=== PATIENT | male | born 1930 | race Caucasian/White ===

== ENCOUNTER 2018-02-02 20:06 | Emergency (ER) | payer OTHER ==
--- NOTE | 2018-02-02 20:22 | EDPHY ---
HPI/HX/ROS/PE/MDM Narrative: CHIEF COMPLAINT: Fever HPI: This patient is an anticoagulated (Coumadin) 87 year old male with past medical history significant for recurrent rapid sepsis, mitral valve replacement, atrial fibrillation, and bladder cancer. He arrives today via EMS for evaluation of fever and chills. He began feeling unwell around 5:30 this evening , primarily with an "out of body" sensation. His daughter at bedside states he has had similar symptoms annually in the past since his valve replacement. These have been related to cellulitis or other unknown etiology, and the patient generally progresses rapidly into sepsis. On EMS arrival, the patient was noted to be in atrial fibrillation and was hypotensive around 92/62. He had taken 1000mg PO Tylenol for fever relief. Vitals were stable in transport, blood pressure 116/64 on arrival here in the ED. The patient did undergo a treatment on Thursday for his bladder cancer involving injections through the urethra. He denies any local pain, swelling, or erythema to the area. He denies dysuria or any changes in urinary frequency, color, or odor. No abdominal pain, vomiting, or diarrhea. He has a chronic cough and denies any changes in this. No chest pain, shortness of breath, or other associated symptoms. REVIEW OF SYSTEMS: A comprehensive 10 system review of systems is otherwise negative aside from elements mentioned in the history of present illness and medical decision making. PMH: Atrial fibrillation (Coumadin). History of mitral valve replacement 8 years ago following sepsis. Bladder cancer. SOCIAL HISTORY: Daughter at bedside. Lives in [place]. Retired. PHYSICAL EXAM: General:Patient is alert, in no acute distress. ENT:Eyes are normal to inspection. ENT inspection normal. Neck: Normal inspection. Full range of motion. Respiratory:No respiratory distress. Breath sounds normal bilaterally. Cardiovascular: Regular rate and rhythm. Strong peripheral pulses. Normal cap refill. Abdomen:The abdomen is nontender to palpation. There are no peritoneal signs. There are normal bowel sounds. Back: Normal to inspection. No tenderness to palpation. Skin: Normal color. No rash. Warm and dry. Extremities: Normal appearance. Full range of motion. Neuro: Oriented x3. Normal motor function. Normal sensory function. ED Course: 20:08 Met EMS at bedside 87 y/o male with history of recurrent rapid sepsis presents with fevers, chills , and rigors beginning this afternoon. Plan for labs including CBC, chemistries , lactic acid, flu swab, UA, blood cultures. Lactic negative. Flu swab negative. UA negative for UTI. Plan to admit for fever due to prosthetic heart valve, history of rapid progression to sepsis. 22:10 Attempted to contact [facility], no answer. 22:20: Still no answer at [facility]. 22:25 Spoke with [facility] service. They prefer transfer to [facility] , a [facility] facility, for further care. Dr. Smiley Garces accepts admission for fever, history of rapid sepsis. MDM: This patient presents with fever of unknown source and flu-like symptoms. His presentation is reassuring, but he has a history of rapidly going into septic shock as well as a history of strep endocarditis. As such, I think he requires admission for further workup and treatment. His lactate is WNL and vitals are improving, so I do not think empiric antibiotics are indicated at this time. Patient expressed desire to stay here but [facility] has decided to transport him to [facility]. - Data Points Imaging Results: Imaging Impressions Chest X-Ray 02/02/18 20:09 Impression: Nothing acute radiographically. Laboratory Results: Laboratory Results 02/02/18 20:40 02/02/18 20:40 02/02/18 02/02/18 02/02/18 21:10 20:51 20:40 WBC RBC Hgb Hct MCV MCH MCHC RDW Plt Count MPV Neut % (Auto) Lymph % (Auto) [place] % (Auto) Eos % (Auto) Baso % (Auto) Nucleat RBC Rel Count Absolute Neuts (auto) Absolute Lymphs (auto) Absolute Monos (auto) Absolute Eos (auto) Absolute Basos (auto) Absolute Nucleated RBC Immature Gran % Immature Gran # RBC/WBC/PLT Morphology Platelet Estimate PT 30.2 SEC H SEC (12.0-15.0) INR 2.90 H (0.83-1.16) APTT 38.2 SEC H SEC (23.0-38.0) VBG Lactic Acid Sodium 142 mEq/L mEq/L (135-145) Potassium 4.5 mEq/L mEq/L (3.3-5.0) Chloride 109 mEq/L mEq/L (97-110) Carbon Dioxide 21 mEq/l L mEq/l (22-31) Anion Gap 12 mEq/L mEq/L (6-14) BUN 25 mg/dL H mg/dL (7-23) Creatinine 0.9 mg/dL mg/dL (0.7-1.3) Estimated GFR > 60 Glucose 86 mg/dL mg/dL (70-100) Calcium 9.1 mg/dL mg/dL (8.5-10.4) Urine Color YELLOW Urine Appearance CLEAR Urine pH 5.0 (5.0-7.5) Ur Specific [place] 1.018 (1.002-1.030) Urine Protein NEGATIVE (NEGATIVE) Urine Ketones TRACE H (NEGATIVE) Urine Blood NEGATIVE (NEGATIVE) Urine Nitrate NEGATIVE (NEGATIVE) Urine Bilirubin NEGATIVE (NEGATIVE) Urine Urobilinogen NEGATIVE EU EU (0.2-1.0) Ur Leukocyte Esterase NEGATIVE (NEGATIVE) Urine Glucose NEGATIVE (NEGATIVE) Nasal Influenza A PCR Nasal Influenza B PCR 02/02/18 02/02/18 02/02/18 20:40 20:40 20:15 WBC 7.68 10^3/uL 10^3/uL (3.80-9.50) RBC 4.01 10^6/uL L 10^6/uL (4.40-6.38) Hgb 13.2 g/dL L g/dL (13.7-17.5) Hct 38.8 % L % (40.0-51.0) MCV 96.8 fL fL (81.5-99.8) MCH 32.9 pg pg (27.9-34.1) MCHC 34.0 g/dL g/dL (32.4-36.7) RDW 13.5 % % (11.5-15.2) Plt Count 179 10^3/uL 10^3/uL (150-400) MPV 9.1 fL fL (8.7-11.7) Neut % (Auto) 91.1 % H % (39.3-74.2) Lymph % (Auto) 6.0 % L % (15.0-45.0) [place] % (Auto) 1.4 % L % (4.5-13.0) Eos % (Auto) 0.8 % % (0.6-7.6) Baso % (Auto) 0.3 % % (0.3-1.7) Nucleat RBC Rel Count 0.0 % % (0.0-0.2) Absolute Neuts (auto) 7.00 10^3/uL H 10^3/uL (1.70-6.50) Absolute Lymphs (auto) 0.46 10^3/uL L 10^3/uL (1.00-3.00) Absolute Monos (auto) 0.11 10^3/uL L 10^3/uL (0.30-0.80) Absolute Eos (auto) 0.06 10^3/uL 10^3/uL (0.03-0.40) Absolute Basos (auto) 0.02 10^3/uL 10^3/uL (0.02-0.10) Absolute Nucleated RBC 0.00 10^3/uL 10^3/uL (0-0.01) Immature Gran % 0.4 % % (0.0-1.1) Immature Gran # 0.03 10^3/uL 10^3/uL (0.00-0.10) RBC/WBC/PLT Morphology TNP Platelet Estimate TNP PT INR APTT VBG Lactic Acid 1.5 mmol/L mmol/L (0.7-2.1) Sodium Potassium Chloride Carbon Dioxide Anion Gap BUN Creatinine Estimated GFR Glucose Calcium Urine Color Urine Appearance Urine pH Ur Specific [place] Urine Protein Urine Ketones Urine Blood Urine Nitrate Urine Bilirubin Urine Urobilinogen Ur Leukocyte Esterase Urine Glucose Nasal Influenza A PCR NEGATIVE FOR FLU A (NEGATIVE) Nasal Influenza B PCR NEGATIVE FOR FLU B (NEGATIVE) Medications Given: Discontinued Medications Ondansetron HCl (Zofran) 4 mg IVP EDNOW ONE Stop: 02/02/18 22:07 Last Admin: 02/02/18 22:09 Dose: 4 mg General Time Seen by Provider: 02/02/18 20:07 Initial Vital Signs: Initial Vital Signs Temperature (C) 37.9 C 02/02/18 20:12 Heart Rate 112 H 02/02/18 20:12 Respiratory Rate 18 02/02/18 20:12 Blood Pressure 116/64 02/02/18 20:12 O2 Sat (%) 96 02/02/18 20:12 O2 Delivery Mode Nasal Cannula O2 (L/minute) 2 Allergies/Adverse Reactions: Penicillins Allergy (Verified 02/02/18 20:11) Home Medications: Medication Instructions Recorded Warfarin Sodium [Coumadin 7.5MG 7.5 mg PO DAILY16 12/07/12 (RX)] SIMVASTATIN 02/02/18 Departure - Departure Disposition: [facility] Not [facility] Clinical Impression: Fever Condition: Fair Referrals: Patient,NotPresent [Unknown] - As per Instructions Report Scribed for: Orlando Lee Report Scribed by: Monica Carbajal Date of Report: 02/02/18 Time of Report: 20:22 Physician Review and Approval Statement: Portions of this note were transcribed by an ED scribe. I personally performed the history, physical exam, and medical decision making; and confirm the accuracy of the information in the transcribed note.
[2018-02-02 20:57] LABS: PLATELET COUNT 179 10^3/uL (150-400)
[2018-02-02 22:06] LABS: INR 2.9 (0.83-1.16); PROTIME(PATIENT) 30.2 SEC (12.0-15.0)
[2018-02-02] MEDS ORDERED: ONDANSETRON 4 MG/2 ML VIAL IVP ONE (22:06)
[2018-02-02] MEDS ORDERED: KETOROLAC 15 MG/1 ML SDV ONE (22:08)
--- NOTE | 2018-02-02 22:58 | CPEKG ---
Test Reason : OPEN Blood Pressure : / mmHG Vent. Rate : 107 BPM Atrial Rate : 099 BPM P-R Int : 119 ms QRS Dur : 094 ms QT Int : 325 ms P-R-T Axes : 000 096 056 degrees QTc Int : 434 ms Atrial fibrillation Right axis deviation Abnormal R-wave progression, early transition Confirmed by Orlando Lee [id number] on 02/02/2018 10:57:30 PM Referred By: Confirmed By:Orlando Lee
[2018-02-03 03:47] VITALS: BP 107/65
== END 2018-02-02 23:43 | disposition short-term general hospital (02) ==
LOC: EDUNIT#
DX: R50.9 Fever, unspecified (principal); I48.91 Unspecified atrial fibrillation; Z79.01 Long term (current) use of anticoagulants; Z85.51 Personal history of malignant neoplasm of bladder
CPT/HCPCS: 71046; 93005; 96374; 99285; J1885; J2405